=== PATIENT | male | born 1975 | race Caucasian/White ===

== ENCOUNTER → 2019-10-24 15:54 | Outpatient (BNVA) | payer SELFPAY | PROVIDERS: Family Provider Family Medicine; Referring Provider Dermatology; Visit Provider Dermatology | DX: L57.8 Other skin changes due to chronic exposure to nonionizing radiation (principal); L98.8 Other specified disorders of the skin and subcutaneous tissue; Z41.1 Encounter for cosmetic surgery | CPT/HCPCS: 64612; 99398; G0463; J0585 ==

== ENCOUNTER 2021-06-08 06:09 | Outpatient (CLI) | payer OTHER, SELFPAY ==
--- NOTE | 2021-06-08 | MR_ITS ---
WS: [id number] MRI CERVICAL SPINE NONCONTRAST TECHNIQUE: Sagittal T1, T2 and STIR imaging. Axial T2, gradient, and fiesta imaging. CLINICAL INFORMATION: NECK PAIN COMPARISON: None. FINDINGS: Straightening of the normal cervical lordosis. Cord signal is normal. Mild disc bulging at C5-C6 and C6-C7. C2-C3: Normal. C3-C4: Mild LEFT and no significant RIGHT foraminal narrowing. Spinal canal is patent. C4-C5: No significant disc bulging. Mild facet arthropathy. Mild RIGHT foraminal narrowing. Spinal ca nal is patent. C5-C6: Mild disc osteophytic ridging. Mild central canal stenosis. Mild LEFT foraminal narrowing. Mil d facet arthropathy. C6-C7: Disc osteophyte complex with endplate ridging. Mild central canal stenosis. Mild bilateral bon y foraminal narrowing. Mild facet arthropathy. C7-T1: Mild LEFT and no significant RIGHT foraminal narrowing. Spinal canal is patent. Visualized brain stem structures: Normal. Prevertebral soft tissues: Normal. MR/MR cervical spin wo con* [id number] IMPRESSION: 1. Straightening of the normal cervical lordosis. Cord signal is normal. 2. Mild central canal stenosis C5-C6 and C6-C7 due to mild disc osteophyte com plexes. 3. Mild bony foraminal narrowing more prominent at LEFT C5-C6, bilateral C6-C7 , and LEFT C7-T1. 4. Mild facet arthropathy C5-C6 and C6-C7.
== END 2021-06-08 06:10 | disposition home or self-care (01) ==
PROVIDERS: Family Provider Family Medicine; Visit Provider Family Medicine
DX: M54.12 Radiculopathy, cervical region (principal); M48.02 Spinal stenosis, cervical region; M25.78 Osteophyte, vertebrae; M47.812 Spondylosis without myelopathy or radiculopathy, cervical region
CPT/HCPCS: 72141

== ENCOUNTER → 2022-01-18 09:39 | Outpatient (BNVA) | payer OTHER, SELFPAY | PROVIDERS: Family Provider Family Medicine; PCP Family Medicine; Visit Provider Family Medicine | DX: Z00.00 Encounter for general adult medical examination without abnormal findings (principal); Z13.6 Encounter for screening for cardiovascular disorders | CPT/HCPCS: 80053; 80061 ==

== ENCOUNTER → 2024-01-16 13:10 | Outpatient (BNVA) | payer OTHER, SELFPAY | PROVIDERS: Family Provider Family Medicine; PCP Family Medicine; Visit Provider Family Medicine | DX: Z00.00 Encounter for general adult medical examination without abnormal findings (principal) | CPT/HCPCS: 80053; 80061 ==